=== PATIENT | female | born 1955 | race Caucasian/White ===

== ENCOUNTER 2020-07-12 06:14 | Day surgery (SDC) | payer OTHER ==
[2020-07-11 09:12] VITALS: BMI 34.1
--- OUTSIDE RECORDS SUMMARY | 2020-07-12 06:18 | XMS ---
:1955 Author Organization [facility] Care Team Providers Name Role Phone [id number] Unavailable Unavailable ROWAN NORRIS Unavailable Unavailable ZAIRA GOLDSTEIN Unavailable Unavailable Re-disclosure Warning The records that you are about to access may contain information from federally- assisted alcohol or drug abuse programs. If such information is present, then the following federally mandated warning applies: This information has been disclosed to you from records protected by federal confidentiality rules (42 CFR part 2). The federal rules prohibit you from making any further disclosure of this information unless further disclosure is expressly permitted by the written consent of the person to whom it pertains or as otherwise permitted by 42 CFR part 2. A general authorization for the release of medical or other information is NOT sufficient for this purpose. The Federal rules restrict any use of the information to criminally investigate or prosecute any alcohol or drug abuse patient.The records that you are about to access may contain highly sensitive health information, the redisclosure of which is protected by Article 27-F of the [facility] Public Health law. If you continue you may haveaccess to information: Regarding HIV / AIDS; Provided by facilities licensed or operated by the [facility] Office of Mental Health; or Provided by the [facility] Office for People With Developmental Disabilities. If such information is present, then the following [facility] mandated warning applies: This information has been disclosed to you from confidential records which are protected by state law. State law prohibits you from making any further disclosure of this information without the specific written consent of the person to whom it pertains, or as otherwise permitted by law. Any unauthorized further disclosure in violation of state law may result in a fine or group home sentence or both. A general authorization for the release of medical or other information is NOT sufficient authorization for further disclosure. Encounters Encounter Providers Location Date Indications Data Source(s ) Outpatient Attender: [id number] 12/06/2019 [facility] ([facility] 12:22:24 PM Care [facility]) EST Patient admitted. Outpatient Attender: ROWAN SIGALA 10/17/2019 12:09:00 PM [facility] UPTONENAdmitter: [facility] ALEXSANDRAFLORIReferrer: ROWAN UPTONEN Outpatient 05/09/2019 02:37:24 PM [facility] ([facility] ) Patient admitted. Outpatient 05/09/2019 02:37:21 PM EDT [facility] ([facility]) Patient admitted. Outpatient 05/09/2019 02:37:17 PM EDT [facility] ([facility]) Patient admitted. Outpatient 05/09/2019 02:37:13 PM EDT [facility] ([facility]) Patient admitted. Outpatient 03/01/2019 03:34:53 PM EDT [facility] ([facility]) Patient admitted. Outpatient 03/01/2019 03:34:49 PM EDT [facility] ([facility]) Patient admitted. Outpatient Attender: ZAIRA Regalado 02/14/2019 10:45:00 AM [facility] ZAIRAAd[facility] MENESESReferrer: ZAIRA MENESES Medications Medication Brand Start Product Dose Route Administrative Pharmacy [facility] Indications Reaction Description Data Name Date Form Instructions Instructions Source(s) Zolpidem Ambien 1.0 Oral active NETSM ART tartrate 10 2018 Table ([place] est MG Oral 04:00: t er Religion Tablet 00 AM Community [Ambien] EDT Services) 03/31/ ORAL active NETSMART 2018 ([place] 04:00: er Religion 00 AM Community EDT Services) 24 HR Wellbu 1.0 Oral active NETSMART Bupropion lexus 2018 Table (Berta t Hydrochlori XL 04:00: t er Pentecostalism mae de 300 MG 00 AM Community Extended EDT Services) Release Oral Tablet [Wellbutrin ] duloxetine Cymbal 03/31/ 2.0 Oral active NET SMART 30 MG ta 2019 Capsu ([facility] Delayed 04:00: le er Religion Release 00 AM Community Oral EDT Services) Capsule [Cymbalta] 03/31/ ORAL active NETSMART 2019 ([facility] 04:00: er Religion 00 AM Community EDT Services) 03/31/ ORAL active NETSMART 2019 ([facility] 04:00: er Religion 00 AM Community EDT Services) Clonazepam KlonoP 1.0 Oral active NET SMART 0.5 MG Oral IN 2019 Table ([facility] est Tablet 04:00: t er Religion [Klonopin] 00 AM Communit y EDT Services) 03/10/ ORAL active NETSMART 2018 ([facility] 04:00: er Religion 00 AM Community EDT Services) 02/23/ ORAL complet NETSMART 2019 ed ([facility] 04:00: er Religion 00 AM Community EDT Services) 02/09/ ORAL complet NETSMART 2018 ed ([facility] 04:00: er Religion 00 AM Community EDT Services) 01/26/ ORAL complet NETSMART 2018 ed ([facility] 04:00: er Religion 00 AM Community EDT Services) Insurance Providers Payer name Policy type Policy ID Covered Covered republican's Policy P madi / Coverage republican ID relationship to [place] [facility] ormation type forrest [facility] [place] [id number] [place] [id number] O O [facility] O [id number] 01 [id number] [place] [id number] S [id number] 100 Vision [facility]D [place] [facility] [id number] S [id number] Options MKD Dental [id number] S [id number] [id number] [employer] MKD Medicaid [id number] S [id number] Regular Clinic Visit [facility] Medicaid [id number] S [id number] Managed Care [facility] [place] [id number] [place] [id number] O Problems, Conditions, and Diagnoses Code Display Name Description Problem Type Effective Data Sour ce(s) Dates Recurrent major Recurrent major Complaint 01/17/2019 NETS MART depressive depressive 04:00:00 AM ([place] episodes, episodes, EDT [facility] moderate moderate Services) [id number] Generalized Generalized Complaint 01/17/2019 NETSMART anxiety disorder anxiety disorder 04:00:00 AM ( [facility] Services) [id number] Depression Depression Complaint 01/17/2019 NETSMART (finding) (finding) 04:00:00 AM ([facility] Services) [id number] Anxiety disorder Anxiety disorder Complaint 01/17/2019 NE TSMART (disorder) (disorder) 04:00:00 AM ([facility] Services) M25.474 Effusion, right EFFUSION, RIGHT Diagnosis 10/17/2019 [facility] foot [facility] M25.571 Pain in right PAIN IN RIGHT Diagnosis 10/17/2019 [facility] ANKLE AND JOINTS 12:09:00 PM [facility] right foot OF RIGHT FOOT EST R69 Illness, Illness, Diagnosis 12/21/2018 SIENA (Moun t unspecified unspecified 10:09:32 AM [facility]) Results ID Date Data Source [id number] 07/07/2020 09:37:00 AM EDT [facility] Name Value Range Interpretation Description Data Sup porting Code Source(s) Document(s ) SARS [facility] coronavirus 2 RNA This lab was ordered by [facility] and reported by [facility]. ID Date Data Source [id number] 06/22/2020 12:00:00 AM EDT [facility] Name Value Range Interpretation Code Description Data Sarahi rce(s) Supporting Document(s ) SARS-CoV-2 [facility] BY PCR This lab was ordered by DANIEL GARCÍA MD P C and reported by [facility]. Procedure Social History Code Duration Value Status Description Data Source(s ) Smoking Unknown if ever completed Unknown if ever [facility] se[facility]ian [facility] smoked smoked [facility]
[2020-07-12] MEDS ORDERED: LIDOCAINE HCL 2% (20ML MULTI-DOSE VIAL) ONE (07:13)
[2020-07-12] MEDS ORDERED: MIDAZOLAM HCL 2 MG/2 ML SINGLE DOSE VIAL ONE (07:22)
[2020-07-12] MEDS ORDERED: PROPOFOL 20 ML ONE ×2 (07:36)
[2020-07-12] MEDS ORDERED: SUCCINYLCHOLINE CHLORIDE 200 MG/10 ML SYRINGE ONE (07:36)
[2020-07-12] MEDS ORDERED: ceFAZolin SODIUM 1 GM VIAL ONE (07:40)
[2020-07-12] MEDS ORDERED: ONDANSETRON 4 MG/2 ML VIAL ONE (07:40)
[2020-07-12] MEDS ORDERED: DEXAMETHASONE SOD PHOSPHATE 4 MG/1 ML VIAL ONE (07:40)
[2020-07-12] MEDS ORDERED: LIDOCAINE HCL 2% (50ML VIAL) NR ONE (07:45)
[2020-07-12 08:38] VITALS: TEMP 97.5
[2020-07-12 09:03] VITALS: BP 122/68; PULSE 66
--- NOTE | 2020-07-12 11:43 | OP ---
DATE OF OPERATION: 07/12/2020 PREOPERATIVE DIAGNOSIS: Left ring trigger finger. POSTOPERATIVE DIAGNOSIS: Left ring trigger finger. OPERATIVE PROCEDURE: Left ring trigger finger release. SURGEON: Brynn Palomares MD ANESTHESIA: Local with sedation. COMPLICATIONS: None. ESTIMATED BLOOD LOSS: Minimal. INDICATIONS FOR PROCEDURE: The patient is a 65-year-old female with the above finding, indicated for operative treatment. Risks, benefits and alternatives were discussed with patient at length. Proper informed consent was obtained. PROCEDURE: After proper identification of patient and correct operative site, patient was brought to the operating room, placed supine on the operating table. All prominences were well padded. Sedation and local anesthesia were given. Left upper extremity was prepped and draped in a sterile fashion. Well-padded tourniquet was placed over the sterile prep. Esmarch bandage to exsanguinate left upper extremity. Tourniquet was inflated to 250 mmHg. Longitudinal incision made over the A1 edin to the ring finger. Incision was taken sharply through skin with blunt and sharp dissection through subcutaneous tissues. A1 edin was identified and then divided longitudinally. Patient was then asked to flex and extend her finger and no further triggering occurred. Wound was repaired with 5-0 fast-absorbing plain gut suture as well as Dermabond. Sterile dressings were applied. Patient was brought to the recovery room in stable condition. She tolerated the procedure well. LISHA PALOMARES M.D. [id number]
== END 2020-07-12 09:00 | disposition home or self-care (01) ==
LOC: FASU 06:14
PROVIDERS: ATTEND Orthopaedic Surgery Hand Surgery
PROC: 0LN80ZZ Release Left Hand Tendon, Open Approach (ICD-10-PCS; principal; 2020-07-12 07:52)
DX: M65.342 Trigger finger, left ring finger (principal)